=== PATIENT | male | born 1955 | race Caucasian/White ===

== ENCOUNTER 2024-02-12 18:52 | Inpatient (IN) | payer OTHER, SELFPAY ==
[2024-02-12] VITALS (15 sets, daily range): BP systolic 118–164; BP diastolic 70–116; BMI 29.9; BMI 28.3
[2024-02-12 13:40] LABS: % Basophils 0.2 % (0-2); % Eosinophils 1.9 % (0-6); % Immature Granulocytes 0.4 % (0-0.5); % Lymphocytes 26.7 % (20.5-51.1); % Neutrophils 62.8 % (42.2-75.2); Absolute Eosinophils 0.1 10^3/uL (0-0.7); Absolute Lymphocytes 1.4 10^3/uL (1.2-3.4); Absolute Monocytes 0.4 10^3/uL (0.1-0.6); Absolute Neutrophils 3.4 10^3/uL (1.4-6.5); Hematocrit 43.1 % (39.0-52.0); Hemoglobin 14.8 g/dL (13.0-18.0); Mean Corp Hgb Conc. 34.3 g/dL (33.0-37.0); Mean Corpuscular Hgb 29.7 pg (27.0-31.0); Mean Corpuscular Volume 86.4 fL (80.0-94.0); Mean Platelet Volume 9.7 fL (7.4-10.4); Nucleated Red Blood Cells % 0 % (-); Platelet Count 178 10^3/uL (130-400); Red Blood Cell Count 4.99 10^6/uL (4.70-6.10); Red Cell Dist. Width 12.5 % (11.5-14.5); White Blood Cell Count 5.4 10^3/uL (4.8-10.8)
--- NOTE | 2024-02-12 13:46 | ED.GENMED ---
History of Present Illness
General
Chief Complaint: Chest Pain
Source: patient and family
Time Seen by Provider: 02/12/24 13:25
History of Present Illness
History of Present Illness:
This patient is a 68-year-old male presents emergency department with complaints of chest pain in the central area that started approximately 10:30 AM while watching TV. The pain radiated through to his back and also to his arm. He called medics,
and was given aspirin but does not recall being administered nitroglycerin. Here in the ER, he describes the pain is 'much less' but still present in the chest. The pain is without exacerbating relieving factors, further radiation, diaphoresis,
vomiting, or dyspnea. He did have slight nausea with the pain. He denies a history of coronary disease, abdominal pain, or other complaints.
Past History
Past History
ED Past Medical History: HTN and Hypercholesterolemia
ED Past Surgical History: Orthopedic and Other (Hernia)
Social History
Tobacco: Former smoker
Alcohol: Occasional
Drug: Marijuana
Personal:
Living: with family
Phy Exam
Physical Exam
Physical Exam:
GENERAL: Alert , in no apparent distress
EYE: pupils equal and reactive
NECK: Supple, no significant adenopathy.
ENT: o/p clr, mmm.
CARDIAC: Regular rate and rhythm .
LUNGS: Clear breath sounds bilaterally, no acute respiratory distress, no wheezes/rales/rhonchi
ABDOMEN: Soft, without focal tenderness, no r/g, no cvat
NEUROLOGICAL: Alert and oriented, no focal neuro deficits
SKIN: Warm and dry, skin intact.
MUSCULOSKELETAL: No edema, well perfused.
PSYCH: Normal and appropriate interaction.
Scores
Heart Score for Chest Pain Patients
STEMI patient?: Not applicable
Course
Orders/Labs/Results
Orders:
Orders
02/12/24 13:23
Electrocardiogram (*1) Urgent
Reason for Study: Chest Pain
Cardiac Monitoring- Treatment ONCE
EKG- Treatment ONCE
IV Insert/Care/Rem.- Treatment PRN
02/12/24 13:29
Complete Blood Count/With Diff Urgent
Comprehensive Metabolic Panel Urgent
Troponin I Urgent
02/12/24 13:45
Nitroglycerin Sublingual [Nitrostat (Sublingual)] 0.4 mg SL [id number] PRN
02/12/24 13:46
CT Chest Angio W/wo Iv Contras Urgent
Comment:
Reason For Exam: cp to back
02/12/24 14:08
Nitroglycerin Sublingual [Nitrostat (Sublingual)] 0.4 mg .ROUTE .STK-MED ONE
02/12/24 Dinner
Cholesterol Lowering
At Your Request: Limited Participation
Does patient need a safe tray?: No
Cholesterol Lowering: Sodium, 2 Gram
02/12/24 15:36
Heparin 8,000 units IV NOW STA
Nursing to Place Non Medication Order As Directed
Physician Order: PTT 6 hours after initial start of Heparin infusion
Above order entered?: Yes
02/12/24 15:45
Heparin [id number] Units/250 ml 25,000 units in 250 ml IV PER PROTOCOL
Weight to be used for heparin protocol in kilograms (kg):: 100
Protocol:: DVT/PE
PTT Goal Range to be used:: PTT 73 to 111 seconds
Order type:: Initial
INITIAL Infusion Dose (UNITS/KG/hr) & then follow protocol:: 18 units/kg/hr
Infusion Dose in UNITS/hr & then follow protocol (UNITS/hr):: 1,800
INFUSION RATE in mL/hr & then follow protocol (mL/hr):: 18
For DVT/PE algorithm, re-bolus for low PTT?: Yes
PTT less than or equal to 64 seconds:: Re-bolus 80 units/kg (max 10,000units). Increase by 400 units/hr
(+ 4mL/hr)
PTT 64.1 to 72.9 seconds:: Re-bolus 40 units/kg (max 5,000 units). Increase by 200 units/hr
(+ 2mL/hr)
PTT 73 to 111 seconds:: Target Range. No change in rate.
PTT 111.1 to 130.9 seconds:: Decrease rate by 200 units/hr (- 2 mL/hr)
PTT 131 to 199.9 seconds:: HOLD for 1 hr. Then decrease by 300 units/hr (- 3mL/hr)
PTT greater than or equal to 200 seconds:: HOLD for 2 hrs & Notify Provider. Then decrease by 400 units/hr
(- 4mL/hr)
Lab follow-up:: Each change, PTT q6h until 2 consecutive are therapeutic. Then
PTT daily.
02/12/24 15:46
Heparin [id number] Units/250 ml 25,000 units in 250 ml .ROUTE .STK-MED
02/12/24 15:49
Heparin 4,000 units IV PRN PRN
Heparin 8,000 units IV PRN PRN
02/12/24 15:55
PTT Urgent
Comment: Obtain baseline before beginning heparin infusion if not already collected
02/12/24 18:15
Peripheral Venous Lwr Ext Bilat US [US Periph Venous LOWER Ext Richy] Urgent
Comment:
Reason For Exam: Pulmonary Embolism
02/12/24 18:16
Admit/Transfer Patient As Directed
Co-Sign Provider:
Level of Care: Inpatient admission
Assign to:: Telemetry
Physician / Group: Htay
Diagnosis: Pulmonary Embolism
Reason for Telemetry: Arrhythmia
Date to Stop Telemetry: 02/15/24
Time to Stop Telemetry: 11:00
Reason for Hospitalization: heparin drip
Expected length of stay greater than two midnights?: Yes
ELOS- Estimated Length of Stay in days: 3
I certify the patient meets the requirements for IP care: Yes
PRN Pain Medication Management As Directed
May give lesser potent ordered pain med per pt: Yes
preference::
Protocol:: Medication orders for pain may be administered in a
manner that supports deferring to patient preference
when the pt is:
- Requesting an ordered lesser potent pain medication.
Least to most potent pain medications are defined
as: acetaminophen < NSAID < tramadol < opioids
(morphine, oxycodone, hydromorphone).
- Requesting a lesser dose of the same medication IF
ORDERED.
- Requesting a less intrusive route of administration
if both routes are prescribed by the provider (PO <
IV).
02/12/24 18:18
Code Status As Directed
Resuscitation Status: Full Code
02/12/24 20:21
Troponin I Routine
02/12/24 20:38
Acetaminophen [Tylenol] 650 mg PO Q4HPRN PRN
Zolpidem Tartrate [Ambien] 5 mg PO HSPRN PRN
02/12/24 20:38
Heparin Protocol- PTT Orders As Directed
PTT per Heparin protocol: -Obtain CBC and baseline PTT - if not already collected.
-Obtain PTT 6 hours from start of infusion. Then, every 6 hours until 2 consecutive
PTT's are therapeutic. Then, PTT Daily.
-With each rate change, obtain PTT every 6 hours until 2 consecutive PTT's are
therapeutic. Then, PTT Daily.
Activity As Directed
Activity Level: Out of Bed- Chair
Bladder Scan As Directed
Follow Bladder Retention/Intermittent Cath Algorithm?: Yes
Frequency: Per Retention Algorithm
Comment: as per intermittent urinary catheter algorithm
Intake/ Output As Directed
Frequency: Per unit guidelines
Notify MD As Directed
Notify physician if: PTT is greater than or equal to 200.
Straight Cath As Directed
Frequency: Per Retention Algorithm
Additional Instructions: straight cath as needed per acute urinary retention algorithm for 24 hrs
Additional Instructions: for bladder scan greater than 400 mL
Vital Signs As Directed
Frequency: Per unit guidelines
Pulse Ox/cont/shift [RESP] Routine
Quantity: 1
Special Instructions: check O2 Sat Q8 hours and at each change in oxygen liter flow and FiO2
02/12/24 22:00
Atorvastatin [Lipitor] 40 mg PO HS
Losartan [Cozaar] 25 mg PO HS
Metoprolol Xl [Toprol Xl] 25 mg PO HS
Sertraline HCl [Zoloft] 200 mg PO HS
finasteride 1 mg PO HS
02/12/24 22:32
PTT Urgent
02/13/24 06:00
Complete Blood Count/No Diff IN AM
02/14/24 06:00
Complete Blood Count/No Diff Q2D
Comment: notify provider: Platelet count < 130,000 or decrease by 50% from baseline
02/15/24 11:00
DC Protocol for Telemetry ONCE
02/16/24 06:00
Complete Blood Count/No Diff Q2D
Comment: notify provider: Platelet count < 130,000 or decrease by 50% from baseline
02/18/24 06:00
Complete Blood Count/No Diff Q2D
Comment: notify provider: Platelet count < 130,000 or decrease by 50% from baseline
02/20/24 06:00
Complete Blood Count/No Diff Q2D
Comment: notify provider: Platelet count < 130,000 or decrease by 50% from baseline
02/22/24 06:00
Complete Blood Count/No Diff Q2D
Comment: notify provider: Platelet count < 130,000 or decrease by 50% from baseline
02/24/24 06:00
Complete Blood Count/No Diff Q2D
Comment: notify provider: Platelet count < 130,000 or decrease by 50% from baseline
02/26/24 06:00
Complete Blood Count/No Diff Q2D
Comment: notify provider: Platelet count < 130,000 or decrease by 50% from baseline
02/28/24 06:00
Complete Blood Count/No Diff Q2D
Comment: notify provider: Platelet count < 130,000 or decrease by 50% from baseline
Abnormal Lab Results
02/12/24
13:29
Sodium 134 L mmol/L
(135-145)
Glucose 100 H mg/dl
(70-99)
02/12/24 13:29
02/12/24 13:29
Vital Signs
Initial and Last Documented VS:
Initial Vital Signs
Temp Pulse Resp BP Pulse Ox
98.4 F 77 15 143/86 97
02/12/24 13:24 02/12/24 13:24 02/12/24 13:24 02/12/24 13:24 02/12/24 13:24
Last Documented Vital Signs
Temp Pulse Resp BP Pulse Ox
98.1 F 66 19 125/74 96
02/13/24 03:28 02/13/24 03:28 02/13/24 03:28 02/13/24 03:28 02/13/24 03:28
*Critical Care Note
Total Time (30-74mins, 75-104mins- exclusive of procedures): 30
Update Note
Update Note:
Patient presents to the Emergency Department with chest pain to back and arm____
Number and Complexity of Problems Addressed at the Encounter
� Chronic conditions affecting care:
� Acute Exacerbation and/or Progression of Chronic Illness:
� Differential Diagnosis includes: But not limited to musculoskeletal pain, ACS, dissection, etc.
Amount and/or Complexity of Data to be Reviewed and Analyzed
� I performed an independent evaluation of and my interpretation is:
EKG: Read by me, normal sinus rhythm, first-degree block, no acute ischemia
CT: TT BARN[place]STMultiple right sided pulmonary emboli, including a saddle embolus in the distal, right main pulmonary artery. No evidence of right heart strain
No aortic dissection.
Xrays:
Laboratory Studies:unremarkable, trop wnl
Other:
� Review of other/old records reveals:
� Clinical information was obtained by an independent historian:
� Prescriptions/Medications Considered but not given:
� Further testing considered but not performed:
Risk of Complications and/or Morbidity or Mortality of Patient Management
� Social determinants of health affecting care:
� Discussion with other providers (PCP, Hospitalists, Consultants, etc):
� Escalation of care including admission/observation vs risk of discharge considered: 356pm Pt remains stable here, denies cp at this time. CT noted, d/w pt and his dx and need for admission. No hypotension/heart strain
etc to suggest candidate for transcatheter therapy. Heparin ordered, tt to hositalist.
ED Attending Note
-
Portions of this chart may have been created with voice recognition software.� Occasional wrong word or��sound alike� substitutions may have occurred due to the inherent limitations of voice recognition software.
Discharge Plan
Departure
Patient Disposition: Admit
Date of Disposition: 02/12/24
Time of Disposition: 15:57
Admit to: Telemetry
Presentation/result/management discussed w/ accepting MD/DO: Hospitalist
Condition: Good
Discharge Problem:
Pulmonary embolism
Interventions
Interventions:
*Risk Screen - Suicide Last Done: 02/12/24 13:24
*General Assessment Last Done: 02/12/24 13:24
*Neglect/Abuse Screening Last Done: 02/12/24 13:24
ED- Fall Risk Assessment Last Done: 02/12/24 13:22
*ED COVID-19 Vaccine History Last Done: 02/12/24 21:19
*Nursing Disposition Last Done: 02/12/24 20:47
ED- Cardiac Assessment Last Done: 02/12/24 13:22
Discharge Date and Time
Discharge Date/Time: 02/12/24 20:49
[2024-02-12 13:50] LABS: ALT (SGPT) 19 U/L (0-50); AST (SGOT) 24 U/L (17-59); Albumin 4.5 g/dl (3.5-5.0); Alkaline Phosphatase 80 U/L (38-126); Blood Urea Nitrogen 14 mg/dl (9-20); Calcium 9.4 mg/dl (8.4-10.2); Carbon Dioxide 28 mmol/L (22-30); Chloride 99 mmol/L (98-107); Estimated Creatinine Clearance 94 ml/min; Glucose 100 mg/dl (70-99); Potassium 4.3 mmol/L (3.5-5.1); Sodium 134 mmol/L (135-145); Total Bilirubin 0.4 mg/dl (0.2-1.3); Total Protein 6.8 g/dl (6.3-8.2); eGFR > 60.00
[2024-02-12 14:02] LABS: Troponin I < 0.012 ng/ml
[2024-02-12] MEDS: NITROSTAT (SUBLINGUAL) 0.4 MG SL (14:14)
[2024-02-12] MEDS: HEPARIN 8000 UNITS IV (16:04)
[2024-02-12] MEDS: HEPARIN 25000 UNITS/250 ML IV (16:05)
[2024-02-12 16:16] LABS: APTT 25.6 Sec (23.4-35.0)
--- NOTE | 2024-02-12 17:54 | HPS.HSE ---
Family Physician
-
Family Physician: Edmundo Hyatt
Chief Complaint
-
Chest Pain
History of Present Illness
Patient is a 68 y/o male past medical history of hypertension, hyperlipidemia and BPH who presents with chest pain. Patient reports left sided chest pain that started around 10am this morning. He reports pain was located both in the front and the
back, with associated pain in the left arm. He called EMS who gave him aspirin and brought him to the emergency department for evaluation. He reports one episode of vomiting upon arrival to the ED. Work-up in the ED revealed multiple right sided
PEs. Patient denies any prior history of DVT/PE. He denies recent surgery or recent travel. He does admit to strong family history with his Dad and brother both having blood clots.
Medical History
Past Medical History
Past Medical History: Reports Other
Additional Past Medical History:
Essential Hypertension
Hyperlipidemia
BPH
Anxiety
Obesity
Past Surgical History: Reports Other
Additional Past Surgical History:
Hernia Repair
Shoulder Surgery
Social History
Tobacco: Former Smoker (Quit over 30 years ago)
Alcohol: Daily (3 drinks nightly)
Family History
Family History: Other (Father and Brother with DVT/PE)
Allergies / Home Medications
Allergies reflects when Allergies were last updated in [facility].
Home Medications with original date entered in [facility]
Allergy/Medication List:
Allergies
Allergy/AdvReac Type Severity Reaction Status Date / Time
No Known Allergies Allergy Unverified 02/12/24 14:02
Home Medications
aspirin 81 mg chewable tablet 81 mg PO HS 02/12/24
atorvastatin 40 mg tablet 40 mg PO HS 02/12/24
coenzyme Q10 100 mg capsule (CoQ-10) 100 mg PO HS 02/12/24
finasteride 1 mg tablet 1 mg PO HS 02/12/24
glucosamine sulf dipot chlr,msm,chond 550 mg-C 30 mg-michelle 1 mg capsule (Glucosamine Chondroitin) 1 cap PO HS 02/12/24
losartan 25 mg tablet 25 mg PO HS 02/12/24
metoprolol succinate 25 mg tablet,extended release 24 hr 25 mg PO HS 02/12/24
omega 8-yza-oeq-fish oil 1,000 mg (120 mg-180 mg) capsule (Fish Oil) 1 cap PO HS 02/12/24
semaglutide (weight loss) 1.25 mg SC FR 02/12/24
sertraline 100 mg tablet 200 mg PO HS 02/12/24
testosterone 4 pump topical Q72H 02/12/24
therapeutic multivitamin 1 tab PO HS 02/12/24
zolpidem 10 mg tablet 5 mg PO HSPRN PRN sleep 02/12/24
Review of Systems
-
A 12 point ROS was completed and negative except as noted: Yes
Constitutional: Denies Fever or Chills
Respiratory: Denies Cough or Trouble Breathing
Cardiac: Reports Chest Pain; Denies Palpitations
Musculoskeletal: Reports Other (Patient reports chronic swelling of the left lower extremity, but no leg pain)
Physical Exam
Vital Signs
Vital Signs
Temp Pulse Resp BP Pulse Ox
98.4 F 70 14 144/103 98
02/12/24 13:24 02/12/24 13:32 02/12/24 16:28 02/12/24 14:14 02/12/24 13:32
Physical Exam
General: Comfortable and Conversant
HEENT: Anicteric and Moist mucous membranes
Respiratory: Clear and Non Labored Respirations
Cardiac: S1/S2 and Regular Rhythm
GI: Soft and Non Tender
Rectal: Deferred by Provider
Musculoskeletal: No Clubbing, No Cyanosis and Other (+1 edema LLE)
Skin: Warm and Dry
Neuro: Awake, Alert, Oriented and Nonfocal/grossly intact
Psych: Calm
Laboratory Results
-
02/12/24 13:29
02/12/24 13:
Laboratory Results
APTT 25.6 Sec (23.4-35.0) 02/12/24 15:55
Total Bilirubin 0.4 mg/dl (0.2-1.3) 02/12/24 13:
AST 24 U/L (17-59) 02/12/24 13:
ALT 19 U/L (0-50) 02/12/24 13:
Alkaline Phosphatase 80 U/L (38-126) 02/12/24 13:
Troponin I < 0.012 ng/ml 02/12/24 13:
Chest CT:
Right seminal embolus with multiple right upper lobe, right lower lobe and right middle lobe pulmonary emboli. Moderate clot burden. No evidence of right heart strain.
Data Reviewed
-
CT Scan: Report Reviewed by me
Lab Data: Labs Reviewed by me
Impression/Plan
-
Multiple Right-Sided Pulmonary Emboli
-Continue heparin drip
-Check lower extremity venous Doppler
-Check Echocardiogram
-Given strong family history patient may benefit from outpatient hypercoagulable work-up
-Consult Hematology
Essential Hypertension
-Continue losartan and metoprolol with hold parameters
Hyperlipidemia
-Continue atorvastatin
BPH
-Continue finasteride
Anxiety
-Continue sertraline
Code Status: Full Code
--- NOTE | 2024-02-12 19:04 | W.PN.UPDATE ---
Update Note
Progress Note Update
Patient seen in conjunction with ANGEL. I concur with the history and physical as well as I agree with the assessment and plan unless stated otherwise.
Briefly, this is a 68-year-old male who has a past medical history that is significant for hypertension, hyperlipidemia, and has a family history that is positive for CAD as well as venous thromboembolism presents to the emergency department with a
2-hour history of left-sided chest pain. Patient reports persistent left-sided pain that started while he was just sitting down watching TV. The pain seems to move around from the front to the back on the left side and then transitioned to the
left arm. Denied feeling short of breath. He denied any palpitations, nausea vomiting or diaphoresis. He did take aspirin. He also take sublingual nitroglycerin. By time he arrived in the emergency department via EMS the patient was slightly
chest pain-free. He denied any recent episodes of exertional chest pain, exertional dyspnea, palpitations, lightheadedness, dizziness. While in the emergency department he did describe some nausea and 1 episode of vomiting. He reports chronic
slight right lower extremity swelling relative to the left.
Vital signs in the emergency department were stable to blood pressure of 164/8890, pulse 77 respiratory of 14 and satting 92% on room air. ECG showed normal sinus rhythm with 4 degree AV block. No acute ST or T wave changes. Initial troponin was
negative. CBC was unremarkable. Chemistries were also within normal limits and unremarkable. CT angio is negative for dissection and shows 'Right seminal embolus with multiple right upper lobe, right lower lobe and right middle lobe pulmonary
emboli as described above. Moderate clot burden. No evidence of right heart strain.'
On my exam the patient was well-appearing and in no acute distress. Lungs are clear to auscultation. CV was regular rate and rhythm no rubs or gallops. No edema.
Assessment and plan.
PE - Non massive or submassive PE. No provoking factors. Risk factors include positive family hx.
- admit to telemetry
- echo in am
- IV heparin for now with transition to oral if cardiac w/u negative.
- hematology consult
Chest pain - Likely related to the PE but could also be co -present with incidental PE finding.
- cycle cardiac enzymes
- echo
- continue aspirin/statin for now
- if enzymes are negative, cp resolved and echo is normal, patient can get oupatient stress test.
DVT PPX - on heparin gtt
Code status - full code
[2024-02-12] MEDS: TUMS EX (EXTRA STRENGTH) CHEWABLE TABLET 300 MG PO (20:18)
[2024-02-12 20:55] LABS: Troponin I < 0.012 ng/ml
--- NOTE | 2024-02-12 20:55 | PTCARENOTE ---
Patient arrived from the ED via stretcher. Patient ambulated into the room. AAOx3, VSS. Patient arrived on a heparin gtt. Patient has no c/o pain at this time. No light headedness/dizziness. Patient educated on the plan of care and the hospital's
heparin protocol. Oriented to the room. Call barnes is within reach.
[2024-02-12] MEDS: ZOLOFT 200 MG PO (21:16)
[2024-02-12] MEDS: MAALOX 30 ML PO (21:16)
[2024-02-12] MEDS: COZAAR 25 MG PO (21:16)
[2024-02-12] MEDS: TOPROL XL 25 MG PO (21:16)
[2024-02-12] MEDS: LIPITOR 40 MG PO (21:16)
[2024-02-12] MEDS: AMBIEN 5 MG PO (21:41)
[2024-02-12 22:53] LABS: APTT 144.7 Sec (23.4-35.0)
[2024-02-13 03:28] VITALS: BP 125/74
[2024-02-13 07:35] VITALS: BP 141/79
--- NOTE | 2024-02-13 08:46 | CON.ONC ---
Documented by User: ANGEL Streeter 02/13/24 09:30
Impression
Impression
PE/LLE DVT likely provoked by testosterone use
Plan
Plan
age appropriate routine malignancy screening with PCP
Has follow up with urology to discuss risk/benefit of continued testosterone use
OP thrombophilia evaluation with family hx VTE
Heparin gtt to DOAC at d/c
OP follow up will be arranged upon discharge
Patient History
History of Present Illness
68yo M who presented with chest pain. His left sided chest pain started around 10am on 02/11 and associated with left arm pain. He called EMS who gave him aspirin and brought him to the ER. Initial evaluation was diagnostic for pulmonary emboli
with moderate clot burden. His LLE US showed an occlusive thrombus. His CBC and CMP are unremarkable. He denies personal history of thrombosis, however, his father and brother had blood clots. He denies any prolonged immobility, air travel,
surgery, trauma, or COVID infections. He does take testosterone.
Afebrile, no hypoxia or hypotension
Past-Medical/Surgical History
PMH HTN, HLD, BPH, obesity, anxiety, CAD
PSH shoulder, hernia
Social former smoker, 3ETOH/night, denies recreational drugs
Family brother and father with VTE
Patient Medication
�Medication �Instructions �Recorded �Confirmed �Last Taken �Type
aspirin 81 mg chewable tablet 81 mg PO HS Blood Clot 02/12/24 02/12/24 02/12/24 History
Prevention/Tx
atorvastatin 40 mg tablet 40 mg PO HS High Cholesterol 02/12/24 02/12/24 02/11/24 History
coenzyme Q10 100 mg capsule 100 mg PO HS Supplement 02/12/24 02/12/24 02/11/24 History
(CoQ-10)
finasteride 1 mg tablet 1 mg PO HS Urinary Issue 02/12/24 02/12/24 02/11/24 History
glucosamine sulf dipot 1 cap PO HS Supplement 02/12/24 02/12/24 02/11/24 History
chlr,msm,chond 550 mg-C 30 mg-michelle
1 mg capsule (Glucosamine
Chondroitin)
losartan 25 mg tablet 25 mg PO HS Blood Pressure 02/12/24 02/12/24 02/11/24 History
metoprolol succinate 25 mg 25 mg PO HS Blood Pressure 02/12/24 02/12/24 02/11/24 History
tablet,extended release 24 hr
omega 9-ibw-lmc-fish oil 1,000 mg 1 cap PO HS Supplement 02/12/24 02/12/24 02/11/24 History
(120 mg-180 mg) capsule (Fish Oil)
semaglutide (weight loss) 1.25 mg SC FR WEIGHT LOSS 02/12/24 02/12/24 02/06/24 History
sertraline 100 mg tablet 200 mg PO HS Mental Health/Anxiety 02/12/24 02/12/24 02/11/24 History
testosterone 4 pump topical Q72H Hormonal Agent 02/12/24 02/12/24 2 Days Ago History
~02/10/24
therapeutic multivitamin 1 tab PO HS Supplement 02/12/24 02/12/24 02/11/24 History
zolpidem 10 mg tablet 5 mg PO HSPRN PRN sleep 02/12/24 02/12/24 02/11/24 History
Active Medications
Generic Name Dose Route Start Last Admin
Trade Name Freq PRN Reason Stop Dose Admin
Acetaminophen 650 mg 02/12/24 20:38
Acetaminophen 325 Mg Tablet PO 03/11/24 20:37
Q4HPRN PRN
mild pain/temp > 100.4 F
Atorvastatin Calcium 40 mg 02/12/24 22:00 02/12/24 21:16
Atorvastatin (Lipitor) 40 Mg Tablet PO 03/11/24 21:59 40 mg
HS LAZARUS Administration
Heparin Sodium 8,000 units 02/12/24 15:49
Heparin 80 Units/Kg Rebolus-Do Not Discard IV 03/11/24 15:48
PRN PRN
PTT < OR = 64 seconds
Heparin Sodium 4,000 units 02/12/24 15:49
Heparin 40 Units/Kg Rebolus-Do Not Discard IV 03/11/24 15:48
PRN PRN
PTT = 64.1 to 72.9 seconds
Heparin Sodium 25,000 units in 250 mls @ 0 mls/hr 02/12/24 15:45 02/12/24 16:05
Heparin 88045 Units/250 Ml IV 250 mls
PER PROTOCOL LAZARUS Administration
Protocol
Per Protocol
Losartan Potassium 25 mg 02/12/24 22:00 02/12/24 21:16
Losartan 25 Mg Tablet PO 03/11/24 21:59 25 mg
HS LAZARUS Administration
Metoprolol Succinate 25 mg 02/12/24 22:00 02/12/24 21:16
Metoprolol 25 Mg Extended Release Tablet PO 03/11/24 21:59 25 mg
HS LAZARUS Administration
Non-Formulary Medication 1 mg 02/12/24 22:00
Finasteride PO 03/11/24 21:59
HS LAZARUS
Sertraline HCl 200 mg 02/12/24 22:00 02/12/24 21:16
Sertraline 100 Mg Tablet PO 03/11/24 21:59 200 mg
HS LAZARUS Administration
Sodium Chloride 0 flush 02/12/24 21:00
Sodium Chloride 0.9% (Flush) Syringe IV 03/11/24 20:59
PER PROTOCOL LAZARUS
Zolpidem Tartrate 5 mg 02/12/24 20:38 02/12/24 21:41
Zolpidem Tartrate 10 Mg Tablet PO 03/11/24 20:37 5 mg
HSPRN PRN Administration
sleep
Review of Systems
-
ROS notable for HPI, otherwise negative
Physical Exam
-
General: No Apparent Distress
Cardiology: Normal Sinus Rhythm
Pulmonary: Clear
GI: Soft
Extremities: Pulses Present
Neurology: Non Focal
Skin: Warm
Psych: Calm
Labs
Lab Results
WBC 5.4 10^3/uL (4.8-10.8) 02/12/24 13:
RBC 4.99 10^6/uL (4.70-6.10) 02/12/24:
Hgb 14.8 g/dL (13.0-18.0) 02/12/24
Hct 43.1 % (39.0-52.0) 02/12/24
MCV 86.4 fL (80.0-94.0) 02/12/24
MCH 29.7 pg (27.0-31.0) 02/12/24
MCHC 34.3 g/dL (33.0-37.0) 02/12/24
RDW 12.5 % (11.5-14.5) 02/12/24
Plt Count 178 10^3/uL (130-400) 02/12/24
MPV 9.7 fL (7.4-10.4) 02/12/24
Abs Immat Gran (auto) 0.0 10^3/uL (0-0.05) 02/12/24
Absolute Neuts (auto) 3.4 10^3/uL (1.4-6.5) 02/12/24
Absolute Lymphs (auto) 1.4 10^3/uL (1.2-3.4) 02/12/24
Absolute Monos (auto) 0.4 10^3/uL (0.1-0.6) 02/12/24
Absolute Eos (auto) 0.1 10^3/uL (0-0.7) 02/12/24
Absolute Basos (auto) 0.0 10^3/uL (0-0.2) 02/12/24 13:29
Immature Gran % 0.4 % (0-0.5) 02/12/24 13:
Neutrophils % 62.8 % (42.2-75.2) 02/12/24 13:
Lymphocytes % 26.7 % (20.5-51.1) 02/12/24 13:
Monocytes % 8.0 % (1.7-9.3) 02/12/24 13:
Eosinophils % 1.9 % (0-6) 02/12/24 13:
Basophils % 0.2 % (0-2) 02/12/24 13:
Creatinine 0.8 mg/dL (0.7-1.3) 02/12/24 13:
Vital Signs
Vital Signs
Temp Pulse Resp BP Pulse Ox
98.1 F 66 19 125/74 96
02/13/24 03:28 02/13/24 03:28 02/13/24 03:28 02/13/24 03:28 02/13/24 03:28

Documented by User: Grace Pichardo MD 02/13/24 10:23
Impression
Impression
PE/LLE DVT, likely provoked by testosterone use
Plan
Plan
Discussed the fact that supplemental testosterone likely provoked his PE/DVT
Would treat for at least 3 months with full dose anticoagulation, heparin gtt to DOAC at d/c
However, if he remains on testosterone supplementation, would continue a/c indefinitely for ppx
Has follow up with Dr. Peña next week, will discuss risk/benefit of continued testosterone use
age appropriate routine malignancy screening with PCP
t/c outpatient thrombophilia evaluation with family hx VTE
3mo follow up w/ me will be arranged upon discharge
Patient History
History of Present Illness
68yo M who presented with chest pain. His left sided chest pain started around 10am on 02/11 and associated with left arm pain. He called EMS who gave him aspirin and brought him to the ER. Initial evaluation was diagnostic for pulmonary emboli
with moderate clot burden. His LLE US showed an occlusive thrombus. He reports he's noticed recently that his left calf was bigger than the right. His CBC and CMP are unremarkable. He denies personal history of thrombosis, however, his father and
brother had blood clots, though sound arterial. He denies any prolonged immobility, air travel, surgery, trauma, or COVID infections.
He was noted to have low testosterone on routine bloodwork ~5 years ago. He's been on transdermal testosterone since then, managed by Dr. Peña.
Afebrile, no hypoxia or hypotension
Review of Systems
-
All Other Systems: Not reviewed unless documented
[2024-02-13 09:10] LABS: Hematocrit 41.3 % (39.0-52.0); Hemoglobin 14.4 g/dL (13.0-18.0); Mean Corp Hgb Conc. 34.9 g/dL (33.0-37.0); Mean Corpuscular Hgb 30.1 pg (27.0-31.0); Mean Corpuscular Volume 86.2 fL (80.0-94.0); Platelet Count 176 10^3/uL (130-400); Red Blood Cell Count 4.79 10^6/uL (4.70-6.10); Red Cell Dist. Width 12.6 % (11.5-14.5); White Blood Cell Count 5.6 10^3/uL (4.8-10.8)
[2024-02-13 09:15] LABS: APTT 67.9 Sec (23.4-35.0)
[2024-02-13] MEDS: HEPARIN 4000 UNITS IV (09:36)
[2024-02-13 10:22] LABS: Hepatitis C Antibody Negative (Negative)
[2024-02-13] MEDS: HEPARIN 25000 UNITS/250 ML IV (10:53)
[2024-02-13 11:07] VITALS: BP 148/84
[2024-02-13 15:30] VITALS: BP 121/56
--- NOTE | 2024-02-13 16:47 | CM ---
Patient seen at bedside with physicians and patient . Patient stated that he lives in a 2 story home with his . Patient stated that he has no DME and his pcp is Dr. Hyatt. Patient uses the [facility] in [place] and his cost of Eliquis is going to
be 47$ per month. Patient made aware and he is able to accept this cost. CM will try to provide coupon for patient first month. Patient plan is for discharge home with and no needs. CM will continue to follow for discharge planning needs.
Plan; home no needs
--- NOTE | 2024-02-13 16:51 | W.PN.HOSP.TC ---
Addendum entered and electronically signed by Qing Elmore MD 02/13/24 17:57:
I saw and evaluated the patient independently. I reviewed the resident�s note and agree with findings and plan as documented by Dr. Wood.
GENERAL: well developed, well nourished, male in no apparent distress
HEENT: NC/AT--no O2 requirements
HEART: regular rate and rhythm, +S1, +S2
LUNGS : clear to auscultation bilaterally
ABDOM: soft, nontender, nondistended, + bowel sounds
EXT: no cyanosis, clubbing, or edema
NEUROLOGIC: grossly intact
Pulmonary Embolism/DVT--seems unprovoked and pt with family h/o clots--cont IV heparin drip--check ECHO--check anticardiolipin antibodies and antiphospholipid antibodies--apprec heme--rest will be done as outpt--testosterone supplement could be cause
Chest Pain --likely from PE- 2 negative troponins yesterday- EKG: NSR, first degree heart block- ECHO today; consider outpatient stress test
HLD- Continue Atorvastatin
BPH- Continue finesteride
Essential HTN- Continue Losartan and Metoprolol
Anxiety- Continue Sertraline/Zolpidem
DVT proph--heparin drip
code status -- FULL CODE
Original Note:
Today's Communication/Plan
-
.
Assessment / Plan
Assessment / Plan
1. Pulmonary Embolism/DVT
- CT angio: Right seminal embolus with multiple right upper lobe, right lower lobe and right middle lobe pulmonary emboli as described above. Moderate clot burden. No evidence of right heart strain
- Peripheral vascular ultrasound LLE: Occlusive thrombus in the anterior division of the posterior tibial vein.
- IV heparin
- Transition to oral DOAC at time of discharge
- Possible familial/genetic component
- Seen by Heme (appreciate reccs)
- Testosterone as provocative factor: Consider discontinuation outpatient.
- Age-appropriate routine malignancy screening with PCP
- Outpatient heme follow-up for evaluation of condition and family history
- F/u Anticardiolipin/antiphospholipid antibodies
2. Chest Pain
- 2 negative troponins yesterday
- EKG: NSR, first degree heart block
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 Recommend re-establishing care.
- ECHO today; consider outpatient stress test
3. HLD
- Continue Atorvastatin
4. BPH
- Continue finesteride
5. Essential HTN
- Continue Losartan and Metoprolol
6. Anxiety
- Continue Sertraline/ZOlpidem
Heparin gtt/Full Code/Regular Diet
Anticipated Discharge: 24 - 48 hours
Subjective/Interval History
-
Date of Service: February 13, 2024
Patient seen and examined while resting comfortably in bed. Patient is in good spirits, talkative/making jokes, his is at bedside. Denies any acute complaints this morning. Specifically denies dizziness, chest pain, shortness of breath,
pleuritic chest pain, palpitations, cough, abdominal pain, nausea, vomiting, diarrhea, constipation, calf tenderness/pain, lower extremity edema.
Objective Data
-
Labs:
Laboratory Results
02/13/24 02/13/24
08:23 16:33
WBC 5.6
Hgb 14.4
Hct 41.3
Plt Count 176
APTT 67.9 H Pending
Vital Signs:
Vital Signs
Temp Pulse Resp BP Pulse Ox
98.1 F 87 18 121/56 97
02/13/24 15:30 02/13/24 15:30 02/13/24 15:30 02/13/24 15:30 02/13/24 15:30
I&O
02/12/24 02/13/24 02/14/24
06:59 06:59 06:59
Intake Total 0 / 0
Balance 0 / 0
Review of Systems
-
History Source: Patient and Family
Constitutional: Reports No Symptoms
Respiratory: Denies No Symptoms
Cardiac: Reports No Symptoms
Abdomen/GI: Reports No Symptoms
Musculoskeletal: Reports No Symptoms
Neuro: Reports No Symptoms
Physical Exam
-
General: Well Developed, Well Nourished, No Apparent Distress, Comfortable and Conversant
HEENT: Normocephalic and Atraumatic
Respiratory: Clear to Auscultation
Cardiac: Regular Rhythm and S1/S2
GI: Soft and Nontender
Musculoskeletal: No Clubbing, No Cyanosis and Other (Left lower extremity mildly swollen when compared to the right. Homans' sign negative bilaterally. No discoloration bilaterally.)
Skin: Warm and Dry
Neuro: Awake, Alert and Oriented
Psych: Calm
Data Reviewed
-
CT Scan: Report Reviewed by me and Discussed with Patient
Ultrasound: Report Reviewed by me and Discussed with Patient
Labs: Labs Reviewed by me and Discussed with Patient
[2024-02-13 17:14] LABS: APTT 139.6 Sec (23.4-35.0)
[2024-02-13 19:09] VITALS: BP 130/87
[2024-02-13] MEDS: COZAAR 25 MG PO (20:19)
[2024-02-13] MEDS: ZOLOFT 200 MG PO (20:19)
[2024-02-13] MEDS: TOPROL XL 25 MG PO (20:19)
[2024-02-13] MEDS: LIPITOR 40 MG PO (20:19)
[2024-02-13] MEDS: AMBIEN 5 MG PO (20:35)
[2024-02-13 23:30] VITALS: BP 136/85
[2024-02-14] MEDS: HEPARIN 25000 UNITS/250 ML IV (02:16)
[2024-02-14 03:55] VITALS: BP 127/73
[2024-02-14 06:47] LABS: Hematocrit 43.3 % (39.0-52.0); Hemoglobin 15.2 g/dL (13.0-18.0); Mean Corp Hgb Conc. 35.1 g/dL (33.0-37.0); Mean Corpuscular Hgb 29.6 pg (27.0-31.0); Mean Corpuscular Volume 84.4 fL (80.0-94.0); Mean Platelet Volume 9.3 fL (7.4-10.4); Platelet Count 185 10^3/uL (130-400); Red Blood Cell Count 5.13 10^6/uL (4.70-6.10); Red Cell Dist. Width 12.4 % (11.5-14.5); White Blood Cell Count 5.2 10^3/uL (4.8-10.8)
[2024-02-14 06:56] LABS: APTT 105.6 Sec (23.4-35.0)
[2024-02-14 07:55] VITALS: BP 129/79
--- NOTE | 2024-02-14 11:33 | W.PN.HOSP.TC ---
Addendum entered and electronically signed by Qing Elmore MD 02/14/24 14:28:
I saw and evaluated the patient independently. I reviewed the resident�s note and agree with findings and plan as documented by Dr. Wood.
GENERAL: well developed, well nourished, male in no apparent distress
HEENT: NC/AT--no O2 requirements
HEART: regular rate and rhythm, +S1, +S2
LUNGS : clear to auscultation bilaterally
ABDOM: soft, nontender, nondistended, + bowel sounds
EXT: no cyanosis, clubbing, or edema
NEUROLOGIC: grossly intact
Pulmonary Embolism/DVT--seems unprovoked and pt with family h/o clots--stop IV heparin drip and transition to Eliquis (10mg BID x 1 week then 5mg BID thereafter)-- ECHO with mild heart strain but pt not hypoxic and hemodynamically stable--
anticardiolipin antibodies and antiphospholipid antibodies pending--apprec heme--rest will be done as outpt--testosterone supplement could be cause
Chest Pain --likely from PE- 2 negative troponins yesterday- EKG: NSR, first degree heart block- ECHO today; consider outpatient stress test
HLD- Continue Atorvastatin
BPH- Continue finesteride
Essential HTN- Continue Losartan and Metoprolol
Anxiety- Continue Sertraline/Zolpidem
DVT proph--heparin drip
code status -- FULL CODE
Original Note:
Today's Communication/Plan
-
.
Assessment / Plan
Assessment / Plan
1. Pulmonary Embolism/DVT
- CT angio: Right seminal embolus with multiple right upper lobe, right lower lobe and right middle lobe pulmonary emboli as described above. Moderate clot burden. No evidence of right heart strain
- Peripheral vascular ultrasound LLE: Occlusive thrombus in the anterior division of the posterior tibial vein.
- IV heparin while on admission; transition to Eliquis today.
- Patient to take 10mg Eliquis PO BID
- Possible familial/genetic component
- Seen by Heme (appreciate reccs)
- Testosterone as provocative factor: Consider discontinuation outpatient.
- Age-appropriate routine malignancy screening with PCP
- Outpatient heme follow-up for evaluation of condition and family history
- F/u Anticardiolipin/antiphospholipid antibodies
2. Chest Pain
- 2 negative troponins
- EKG: NSR, first degree heart block
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 Recommend re-establishing care.
3. HLD
- Continue Atorvastatin
4. BPH
- Continue finesteride
5. Essential HTN
- Continue Losartan and Metoprolol
6. Anxiety
- Continue Sertraline/ZOlpidem
Hold Testosterone and ASA.
Heparin gtt/Full Code/Regular Diet
Anticipated Discharge: Today
Subjective/Interval History
-
Date of Service: February 14, 2024
Patient seen and examined while resting comfortably in bed and eating breakfast. The patient has no acute complaints this morning and feels he wants to be discharged home. Patient seen by CM yesterday for Eliquis pricing and was given coupons.
Specifically, the patient declines dizziness, chest pain, SOB, calf tenderness.
Objective Data
-
Labs:
Laboratory Results
02/14/24 02/14/24 02/14/24
00:31 06:37 16:00
WBC 5.2
Hgb 15.2
Hct 43.3
Plt Count 185
APTT 100.0 H 105.6 H Pending
Vital Signs:
Vital Signs
Temp Pulse Resp BP Pulse Ox
98.2 F 68 20 129/79 95
02/14/24 07:55 02/14/24 07:55 02/14/24 07:55 02/14/24 07:55 02/14/24 07:55
I&O
02/13/24 02/14/24 02/15/24
06:59 06:59 06:59
Intake Total 0 / 0 700 / 700
Balance 0 / 0 700 / 700
Review of Systems
-
History Source: Patient
Constitutional: Reports No Symptoms
Respiratory: Reports No Symptoms
Cardiac: Reports No Symptoms
Musculoskeletal: Reports No Symptoms
Neuro: Reports No Symptoms
Physical Exam
-
General: Well Developed, Well Nourished and No Apparent Distress
HEENT: Normocephalic and Atraumatic
Respiratory: Clear to Auscultation and Non Labored Respirations
Cardiac: Regular Rhythm and S1/S2
GI: Soft and Nontender
Musculoskeletal: No Clubbing, No Cyanosis and Other (LLE mildly larger than RLE, chronic; no calf tenderness bilaterally, Gwendolyn's sign negative bilaterally)
Skin: Warm
Neuro: Awake and Alert
Psych: Calm
Data Reviewed
-
Labs: Labs Reviewed by me and Discussed with Patient
[2024-02-14 11:55] VITALS: BP 148/89
[2024-02-14] MEDS: ELIQUIS 10 MG PO (12:25)
--- NOTE | 2024-02-14 14:42 | CM ---
Addendum entered by Orquidea Fuchs 02/14/24 15:21:
Pt was able to speak with [facility] and confirmed that his prescription for Eliquis will be filled today. He was discharged with family via car.
No additional needs identified.
Original Note:
Pt is ready for discharge to home today with no needs. He received a text from [facility] indicating there was a problem with his prescription for Eliquis. He has left a voicemail for the pharmacy and is awaiting a call back. CM will follow up with pt
to determine if the issue has been resolved.
--- NOTE | 2024-02-14 15:37 | W.DCSUMMARY ---
Addendum entered and electronically signed by Qing Elmore MD 02/14/24 17:59:
Read, reviewed, and agree. See same day progress note for additional details. Time spent coordinating care, DC planning, review of DC plan of care with resident, transition of care, review of records in EMR, med rec, consults, notes, d/w
consultants, nursing, family, and CM = 26 minutes
Original Note:
Discharge Summary
Discharge Data
Date of Admission: 02/12/24
Date of Discharge: 02/14/24
-
Pending Results: Yes
Additional Pending Results:
Antiphospholipid Antibody Panel
Anti-cardiolipin Antibody Panel
Hospital Course
Mr. Eagle is a 68-year-old with a past medical history of hypertension, hypercholesterolemia, BPH, anxiety, and a family history of venous thromboembolism. He presented to the emergency department at [facility] on 02/12/2024 with complaints
of chest pain that started approximately 3 hours prior to admission. The pain radiated to his back and his arm. The patient took a whole dose aspirin and when the pain did not subside he decided to call paramedics. Paramedics gave him
nitroglycerin and an additional baby aspirin, and his pain improved significantly. He was still transported to the emergency department where the pain persisted but was improved.
Troponins in the emergency department were negative (and remained negative) and other laboratory studies remain normal. EKG was normal sinus rhythm with a first-degree heart block. CT angiography of the chest however, showed a right seminal
embolus with multiple right upper lobe, right lower lobe and right middle lobe pulmonary emboli. Given these findings,a peripheral vascular ultrasound was also performed in the setting of a mildly swollen left lower extremity. This exhibited an
occlusive thrombus within the anterior division of the posterior tibial vein. The patient was started on IV heparin while in the hospital. A hematology consult was done due to the patient's family history. It was noted that he uses topical
testosterone and that this may have been an inciting factor. The patient remained clinically stable with no complaints for the remainder of his admission. On 02/14/2024, the patient was transition to Eliquis which he should remain on for the next 9
months. He was advised to follow-up with his primary care provider in less than 1 week. Additionally he was advised to follow-up with a intermodal dispatcher/oncologist for further workup of potential genetic hypercoagulability. Antiphospholipid and
anticardiolipin panels are pending. Additionally, it was recommended that the patient follow-up with his internet designer who he noted that he had not seen in some time. The patient was discharged to home on 02/14/2024.
Discharge Plan
-
Patient Disposition: Home (Routine Discharge)
Discharge Diagnosis/Procedures: Pulmonary Embolism of the Right Lung
Deep Venous Thrombosis of the Left Lower Extremity
Condition: Fair
Diet: Low Cholesterol
Activity: As tolerated
Referrals:
Grace Pichardo MD [Active] -
Edmundo Hyatt MD [Family Provider] - in less than 1 week
Additional Discharge Medication Instructions: Take 2 tabs (10 mg) twice daily x 1 week followed by 1 tab (5mg) twice daily thereafter (for Eliquis)
Prescriptions:
New
Eliquis 5 mg tablet
5 mg PO BID Qty: 90 0RF
Rx Instructions:
take 2 tabs (10 mg) twice daily x 1 week then take 1 tab (5 mg) twice daily thereafter
Continued
atorvastatin 40 mg Tablet
40 mg PO HS
sertraline 100 mg Tablet
200 mg PO HS
therapeutic multivitamin Tablet
1 tab PO HS
losartan 25 mg Tablet
25 mg PO HS
metoprolol succinate 25 mg Tablet Extended Release 24 Hr
25 mg PO HS
zolpidem 10 mg Tablet
5 mg PO HSPRN PRN (Reason: sleep)
finasteride 1 mg Tablet
1 mg PO HS
coenzyme Q10 [CoQ-10] 100 mg Capsule
100 mg PO HS
omega 0-laf-qek-fish oil [Fish Oil] 1,000 (120-180) mg Capsule
1 cap PO HS
Glucosamine Chondroitin 550-30-1 mg Capsule
1 cap PO HS
semaglutide (weight loss)
1.25 mg SC FR
Patient Comments:
02/11/23: Patient got this prescription online, no records to confirm prescription or dosage.
Held
aspirin 81 mg Tablet,Chewable
81 mg PO HS
Hold Instructions: Hold until seen by PCP.
testosterone 20.25 mg/1.25 gram (1.62 %) Gel In Metered-Dose Pump
4 pump TOPICAL Q72H
Hold Instructions: Hold until seen by PCP; this may be the cause of thrombosis.
Patient Comments:
02/12/24: Patient is supposed to take 2 pumps QD, but instead takes 4 pumps Q72H.
Discharge Orders:
Discharge Patient (As Directed); Ordered 02/14/24
Ordered By: Gerson Wood
Discharge Date and Time
Discharge Date/Time: 02/14/24 14:58
Print Language: MOZAMBICAN
[2024-02-15 13:32] LABS: Beta-2-Glycoprotein I Ab. IgG <10 SGU (<=20); Beta-2-Glycoprotein I Ab. IgM <10 SMU (<=20)
[2024-02-15 22:16] LABS: Beta-2-Glycoprotein I Ab. IgA <10 SAU (<=20)
[2024-02-16 09:29] LABS: Cardiolipin IgA Antibody <10 APL (<=11); Cardiolipin IgM Antibody <10 MPL (<=12); Cardiolipin Igg Antibody <10 GPL (<=14)
[2024-02-16 21:57] LABS: Phosphatidylserine Ab, IgA 2 APS (0-19); Phosphatidylserine Ab, IgG 0 GPS (0-15); Phosphatidylserine Ab, IgM 7 MPS (0-21)
== END 2024-02-14 14:58 | disposition home or self-care (01) | DRG 176 ==
LOC: 4 EAST ACU 18:52
PROVIDERS: Physician Assistant Medical; ADMITTING PHYSICIAN Internal Medicine; ATTENDING PHYSICIAN Internal Medicine; EMERGENCY PHYSICIAN Emergency Medicine; FAMILY PHYSICIAN Family Medicine; OTHER PHYSICIAN Internal Medicine Hematology & Oncology
DX: I26.99 Other pulmonary embolism without acute cor pulmonale (principal); I82.402 Acute embolism and thrombosis of unspecified deep veins of left lower extremity; Z87.891 Personal history of nicotine dependence; E78.00 Pure hypercholesterolemia, unspecified; I11.9 Hypertensive heart disease without heart failure; F41.9 Anxiety disorder, unspecified; N40.0 Benign prostatic hyperplasia without lower urinary tract symptoms; I26.94 Multiple subsegmental thrombotic pulmonary emboli without acute cor pulmonale
CPT/HCPCS: 71275; 80053; 84484; 85025; 85027; 85730; 86146; 86147; 86148; 86803; 93005; 93306; 93970; 96374; 99291; Q9967

== ENCOUNTER → 2024-06-24 07:07 | Outpatient (REF) | payer OTHER, SELFPAY | LOC: HWRAD 07:07 | PROVIDERS: ATTENDING PHYSICIAN Family Medicine | DX: R74.8 Abnormal levels of other serum enzymes (principal) | CPT/HCPCS: 76700 ==

== ENCOUNTER 2024-12-20 06:24 | Day surgery (SDC) | payer OTHER, SELFPAY | END 2024-12-20 12:12 | disposition home or self-care (01) | LOC: GI 06:24 | PROVIDERS: ATTENDING PHYSICIAN Internal Medicine Gastroenterology; FAMILY PHYSICIAN Family Medicine | DX: Z12.11 Encounter for screening for malignant neoplasm of colon (principal); K64.8 Other hemorrhoids; K57.30 Diverticulosis of large intestine without perforation or abscess without bleeding; D12.8 Benign neoplasm of rectum; D12.5 Benign neoplasm of sigmoid colon; D12.3 Benign neoplasm of transverse colon; D12.2 Benign neoplasm of ascending colon; D12.0 Benign neoplasm of cecum; D12.4 Benign neoplasm of descending colon; K62.1 Rectal polyp; Z86.0100 Personal history of colon polyps, unspecified | CPT/HCPCS: 45385; 45380; 88305 ==